=== PATIENT | female | born 1950 | race Caucasian/White ===

== ENCOUNTER 2022-10-18 14:58 | Outpatient (CLI) | payer MEDICARE, SELFPAY | END 2022-10-18 14:59 | disposition home or self-care (01) | LOC: AMB 10-24 21:17 | PROVIDERS: PCP Family Medicine; Visit Provider Family Medicine | DX: R53.1 Weakness (principal) ==

== ENCOUNTER 2024-08-21 09:03 | Outpatient (CLI) | payer MEDICARE, SELFPAY ==
--- NOTE | 2024-08-21 10:36 | W.ANESCHARGE ---
Anesthesia Charges Start Date/Time Anesthesia Start Date: 08/21/24 Anesthesia Start Time: 10:06 Stop Date/Time Anesthesia Stop Date: 08/21/24 Anesthesia Stop Time: 10:34
--- NOTE | 2024-08-21 10:59 | W.ANESCHARGE ---
Anesthesia Charges Start Date/Time Anesthesia Start Date: 08/21/24 Anesthesia Start Time: 10:06 Stop Date/Time Anesthesia Stop Date: 08/21/24 Anesthesia Stop Time: 10:34 Summary Extremes of Age - Over 70 or under 1: MDA
== END 2024-08-21 09:04 | disposition home or self-care (01) ==
LOC: OP CLINIC 09:06
PROVIDERS: PCP Family Medicine; Visit Provider Internal Medicine Gastroenterology
DX: Z12.11 Encounter for screening for malignant neoplasm of colon (principal); D12.2 Benign neoplasm of ascending colon; Q43.8 Other specified congenital malformations of intestine; Z86.0101 Personal history of adenomatous and serrated colon polyps
CPT/HCPCS: 00811; 45385; 99100; J2704